=== PATIENT | female | born 1965 | race Caucasian/White ===

== ENCOUNTER → 2016-07-31 | Outpatient (CLI) | payer BC | LOC: KOH-I 14:27 | DX: M25.561 Pain in right knee (principal) | CPT/HCPCS: 73564 ==

== ENCOUNTER → 2020-05-17 | Outpatient (CLI) | payer BC, OTHER ==
[~2020-05-17] MED LIST: ANAPROX DS550 MG PO; LEVOTHYROXINE75 MC1 PO; LIPITOR TAB 2020 MG PO; MICARDIS80 MG PO; NORVASC5 MG PO; VITAMIN D250 MCG PO; ZYRTEC10 M3 PO
== END ==
LOC: OPSV2 10:00
DX: Z01.818 Encounter for other preprocedural examination (principal); N95.0 Postmenopausal bleeding
CPT/HCPCS: 71046

== ENCOUNTER → 2020-05-24 | Day surgery (SDC) | payer BC, OTHER | END | disposition home or self-care (01) | LOC: OR 06:39 | DX: N85.01 Benign endometrial hyperplasia (principal); N95.0 Postmenopausal bleeding; I10 Essential (primary) hypertension; E78.5 Hyperlipidemia, unspecified; N93.9 Abnormal uterine and vaginal bleeding, unspecified; E03.9 Hypothyroidism, unspecified; E66.01 Morbid (severe) obesity due to excess calories; Z68.44 Body mass index [BMI] 60.0-69.9, adult | CPT/HCPCS: J0690; J1100; J1885; J2001; J2250; J2405; J2704; J3010; J7120 ==

== ENCOUNTER → 2020-07-03 | Outpatient (CLI) | payer BC, OTHER ==
[2020-07-03 17:06] LABS: HEMOGLOBIN 12.6 gm/dl (12.3-15.3); RED BLOOD COUNT 4.26 M/UL (4.00-5.10); WHITE BLOOD COUNT 7.6 K/UL (4.5-11.0)
== END ==
LOC: LAB 16:32
PROVIDERS: Physician Assistant
DX: N93.9 Abnormal uterine and vaginal bleeding, unspecified (principal)
CPT/HCPCS: 85025

== ENCOUNTER 2021-03-17 10:38 | Emergency (ER) | payer BC ==
[~2021-03-17] VITALS: Ht 170.2 cm; Wt 176.9 kg
== END 2021-03-17 13:30 | disposition home or self-care (01) ==
LOC: ER1 10:38
DX: U07.1 COVID-19 (principal); Z23 Encounter for immunization; I10 Essential (primary) hypertension; E78.5 Hyperlipidemia, unspecified
CPT/HCPCS: 99283; M0243